=== PATIENT | male | born 1955 | race Caucasian/White ===

== ENCOUNTER 2017-10-17 08:15 | Outpatient (RCR) | payer OTHER ==
--- NOTE | 2017-09-12 17:25 | PT INITIAL EVALUATION ---
MEDICAL DIAGNOSIS: Fracture of thumb, left, closed TREATMENT DIAGNOSIS: same DATE OF ONSET: 07/15/17 SUBJECTIVE: Devaughn Lopez presents to physical therapy with complaints of L thumb pain, decreased PROM-AROM of his L thumb, and decreased strength as a result of fracture that occurred by getting stuck in a drill press approximately 3 months ago. He reports that he continues to have pain and soreness with his L wrist, L thumb, and the L thumb extensor muscles as they ache if he continually uses his hand and thumb. He reports that he cannot shuffle cards correctly, cannot square shear operator items that require his thumb. He reports that he feels like it continues to get better with each passing day. When his L thumb aches, he reports the pain to be around 3-4/10. He reports that it aches from the base of his thumb up into his wrist on the posterior side or the extensor side. Pain location is CMC joint, proximal interphalangeal joint, thumb metacarpal, MCP joint and described as achy. Pain scale is 4 on a ten point pain scale. Pain is worse with utilizing his square shear operator strength and better with rest, no motion. 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 L CMC joint: moderately hypomobile with increased pain in all directions. L proximal interphalangeal joint: severe hypomobility with increased pain in all directions. Strength: Gross Software Program Manager Strength: R: 80#, L: 65# 3 Pinch Software Program Manager Strength: R: 9#, L: 9# Palpation: TTP: CMC joint, proximal interphalangeal joint, thumb metacarpal, MCP joint, pain radiating following the extensor pollicus longus from proximal interphalangeal to insertion point Sensation: Intact from C2-T2 Special Tests: L CMC joint: moderately hypomobile with increased pain in all directions. L proximal interphalangeal joint: severe hypomobility with increased pain in all directions. Minimal increases in L swelling around proximal to distal portion of his L thumb. Mobility: Independent ASSESSMENT: Devaughn will benefit from skilled physical therapy addressing the listed impairments to improve function and QOL. Short Term Goals 4 weeks: Pt will demonstrate improvements in PROM-AROM of L CMC joint, thumb metacarpal, MCP joint, and proximal interphalangeal joint from baseline to full PROM-AROM with normalized end feels to improve function and QOL. 8 weeks: Pt will demonstrate improvements with gross square shear operator and 3 pinch square shear operator from baseline to normalized square shear operator strength with no pain to improve function and QOL. Patient's Goals gain strength and improve motion PLAN: Patient to be seen for Manual Therapy/STM/MET Strengthening/condition Range of Motion Spinal Stabilization Work Hardening/Cond Stretching Neuromuscular Re-ed Closed Chain Program Home Exercise Program Therapeutic Activities 2-3x/week for 2 Months If you have any questions, comments, or concerns about this report or plan, please contact me at . Thank you, Antoni Macario, PT, DPT MTDD
--- NOTE | 2017-10-10 14:41 | PT PLAN OF CARE ---
Physician: Logan Akins MD Patient is being seen: 2-3x/week Therapist: Antoni Macario, PT, DPT Medical Diagnosis: Fracture of thumb, left, closed Treatment Diagnosis: same Date of Onset: 07/15/17 Date of Initial Evaluation: 09/12/17 Date patient was last seen: 10/10/17 Number of treatments: 10 Number of cancellations/No shows: 2 INTERVENTIONS: Manual Therapy/STM/MET Strengthening/condition Range of Motion Spinal Stabilization Work Hardening/Cond Stretching Neuromuscular Re-ed Closed Chain Program Home Exercise Program Therapeutic Activities GOALS: 4 weeks: Pt will demonstrate improvements in PROM-AROM of L CMC joint, thumb metacarpal, MCP joint, and proximal interphalangeal joint from baseline to full PROM-AROM with normalized end feels to improve function and QOL. 8 weeks: Pt will demonstrate improvements with gross eyelet row marker and 3 pinch eyelet row marker from baseline to normalized eyelet row marker strength with no pain to improve function and QOL. PATIENT'S GOAL: gain strength and improve motion Status of Patient's Goals: Progressing well Patient Compliance: Good Prognosis: Good Reasons for continuing therapy: This is a progress note for Devaughn Lopez. He reports that he feels like he is doing much better. He reports that his movement has significantly improved in his L thumb. He reports that he can do all things, however, he continues to have increased pain. He reports that he continues to have difficulty with opening new jars. He demonstrated a significant improvement with gross and fine strength with his L thumb and his L hand along with improved mobility of his L thumb in all directions. However, he continues to be limited with extension combined with adduction. We will continue to improve mobility and strength to return to prior level of function. Posture: ROM: L Wrist AROM: WNL's as compared to his R wrist. L CMC joint: minimal hypomobile in all directions. L proximal interphalangeal joint: minimal hypomobility in all directions. Strength: Gross Singe Machine Operator Strength: R: 83#, L: 93# 3 Pinch Singe Machine Operator Strength: R: 21#, L: 19# Palpation: TTP: CMC joint, proximal interphalangeal joint, thumb metacarpal, and MCP joint. Special Tests: L CMC joint: minimal restriction in all directions. L proximal interphalangeal joint: minimal hypomobility in all directions. Mobility: Independent If you have any questions, please contact me at [phone]. Thank you, Antoni Macario, PT, DPT SAVANNAD
[~2017-10-17 08:15] MED LIST: ACET-3017 PO; AMLO-104 PO; ASPI-757 PO; ASPI81TA94 PO; ATOR20TA22 PO; AZIT500T47 PO; BACL-1 PO; CLOB15CR21 TP; CLOP75TA43 PO; DICL100G24 TP; DILT360T9 PO; FISH OIL1 CAP PO; GLUC500T13 PO; MULT1CAP41 PO; OMEP40CA45 PO; OXYC-865 PO; VALS1TAB80 PO
--- NOTE | 2017-10-17 16:53 | PT PLAN OF CARE ---
Physician: Logan Akins MD Patient is being seen: 2-3x/week Therapist: Antoni Macario, PT, DPT Medical Diagnosis: Fracture of thumb, left, closed Treatment Diagnosis: same Date of Onset: 07/15/17 Date of Initial Evaluation: 09/12/17 Date patient was last seen: 10/17/17 Number of treatments: 12 Number of cancellations/No shows: 2 NTERVENTIONS: Manual Therapy/STM/MET Strengthening/condition Range of Motion Spinal Stabilization Work Hardening/Cond Stretching Neuromuscular Re-ed Closed Chain Program Home Exercise Program Therapeutic Activities GOALS: 4 weeks: Pt will demonstrate improvements in PROM-AROM of L CMC joint, thumb metacarpal, MCP joint, and proximal interphalangeal joint from baseline to full PROM-AROM with normalized end feels to improve function and QOL. MET 8 weeks: Pt will demonstrate improvements with gross colon and rectal surgeon and 3 pinch colon and rectal surgeon from baseline to normalized colon and rectal surgeon strength with no pain to improve function and QOL.MET PATIENT'S GOAL: gain strength and improve motion Status of Patient's Goals: MET Patient Compliance: Good Prognosis: Good Reasons for continuing therapy: This is a discharge note for Devaughn Lopez. He reports that he is doing well. He reports that he feels like his L thumb is almost back to normal. He states that he is using it like he did prior to the injury. He reports that he is no longer limited by his L thumb. He denies any soreness unless you stretch it into adduction and extension. He demonstrated significant improvements with the following: colon and rectal surgeon strength improved greater than the L hand, full PROM-AROM with normal end feels (however, he continues to be slightly limited with adduction and extension that will improve with his specific stretch), and abolished fibrosis/adhesions. He is independent on his specific exercise. He has met all of his goals. As a result, he will be discharged from PT to [facility]. Posture: ROM: L Wrist AROM: WNL's as compared to his R wrist. L CMC joint: NIL in all directions. L proximal interphalangeal joint: NIL in all directions. Strength: Gross Lobsterman Strength: R: 83#, L: 93# 3 Pinch Lobsterman Strength: R: 21#, L: 19#. Special Tests: L CMC joint: NIL in in all directions. L proximal interphalangeal joint: NIL in all directions. Mobility: Independent If you have any questions, please contact me at [phone]. Thank you, Antoni Macario PT, DPT JAMES
== END 2017-10-17 18:00 | disposition home or self-care (01) ==
LOC: PT 08:15
PROVIDERS: ATTEND Internal Medicine
DX: Z47.89 Encounter for other orthopedic aftercare (principal); S62.502A Fracture of unspecified phalanx of left thumb, initial encounter for closed fracture; M79.645 Pain in left finger(s)
CPT/HCPCS: 97161

== ENCOUNTER → 2017-11-09 | Outpatient (CLI) | payer OTHER ==
--- NOTE | 2017-11-09 14:56 | RADIOLOGY IMAGING REPORT ---
FACILITY: [facility] PATIENT NAME: Devaughn Lopez : 1955 MR: [id number] V: [id number] EXAM DATE: ORDERING PHYSICIAN: RAYNA BENAVIDEZ TECHNOLOGIST: Location: Patient: Devaughn Lopez : 1955 Visit/Account:[id number] Date of Sevice: 11/09/2017 Study: FINGER RIGHT THUMB Indication: Pain Comparison study: None available Findings: AP lateral and oblique views of the right thumb demonstrates the presence of degenerative d isease at the first interphalangeal joint. There is no evidence of acute fracture or dislocation. The re is no evidence of lytic or blastic bony lesions. The visualized soft tissues are unremarkable. 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 This i s most consistent with osteoarthritis. Report Dictated By: Anastacio Gonzalez at 11/09/2017 2:26 PM Report E-Signed By: Anastacio Gonzalez at 11/09/2017 2:52 PM WSN:[id number]
== END ==
LOC: RAD 13:42
DX: M79.644 Pain in right finger(s) (principal)

== ENCOUNTER → 2018-11-20 | Outpatient (CLI) | payer OTHER ==
[~2018-11-20] MED LIST changes: +TAMS0.4C25 PO
--- NOTE | 2018-11-20 14:22 | EKG ---
FACILITY: [facility] [place] PATIENT NAME: RAHEEL LOOMIS : [id number] MR: [id number] V: [id number] EXAM DATE: ORDERING PHYSICIAN: HENOK STOLL TECHNOLOGIST: EVE Test Reason : NUMBNESS IN ARM Blood Pressure : / mmHG Vent. Rate : 071 BPM Atrial Rate : 071 BPM P-R Int : 170 ms QRS Dur : 102 ms QT Int : 406 ms P-R-T Axes : 052 116 005 degrees QTc Int : 441 ms Normal sinus rhythm Left posterior fascicular block Abnormal ECG No previous ECGs available Confirmed by GISSELLE ISRAEL ([id number]) on 11/20/2018 2:42:23 PM Referred By: Confirmed By:GISSELLE ISRAEL
== END ==
LOC: LAB 08:03
PROVIDERS: ATTEND Internal Medicine
DX: N40.0 Benign prostatic hyperplasia without lower urinary tract symptoms (principal); I49.9 Cardiac arrhythmia, unspecified
CPT/HCPCS: 81001